=== PATIENT | female | born 1990 | race African-American/Black ===

== ENCOUNTER 2017-01-01 07:11 | Emergency (ER) | payer OTHER ==
[2017-01-01 07:28] VITALS: BP 135/70; PULSE 100; TEMP 98.1; BMI 32.9
--- NOTE | 2017-01-01 07:37 | PDOC ---
History of Present Illness - General Chief Complaint: Pain Stated Complaint: SWELLING OF WRIST History Source: Patient Exam Limitations: No Limitations - History of Present Illness Initial Comments: 01/01/17 07:33 My Chief Complaint:Right wrist pain History of Present Illness: Pt.is a 26 y/o female with no significant medical issues here today c/o pain that became 3 days ago wrist area with slight swelling, spreading to fingers today. Pt.denies any injury to hand, wrist or arm. Pt.has intermittent tingling of medial/dorsal wrist. Pain and tingling worse at night. Pt.reports symptoms worse at night. 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 Pt. has not taken anything for pain. Pt.is unsure of status. 01/01/17 08:05 01/01/17 08:23 Occurred: reports: other (3 days) Severity: reports: moderate Upper Extremity Pain Location: right: 2nd finger, 3rd finger, wrist Method of Injury: reports: unknown Modifying Factors: improves with: None Extremity Pain Location - Extremity Pain Location Extremity Pain Locations: right: 2nd finger, 3rd finger, other (wrist) Past History - Past Medical History Allergies/Adverse Reactions: Allergies Allergy/AdvReac Type Severity Reaction Status Date / Time No Known Allergies Allergy Verified 01/01/17 07:15 Home Medications: Ambulatory Orders Naproxen [Naprosyn -] 500 mg PO BID PRN #14 tablet MDD 2 01/01/17 Other medical history: denies - Suicide/Smoking/Psychosocial Hx Smoking Status: No Smoking History: Never smoked Number of Cigarettes Smoked Daily: 0 Information on smoking cessation initiated: No Hx Alcohol Use: No Drug/Substance Use Hx: No Substance Use Type: None Review of Systems - Review of Systems Able to Perform ROS?: Yes Constitutional: No: Symptoms Reported HEENTM: No: Symptoms Reported Respiratory: No: Symptoms reported Cardiac (ROS): No: Symptoms Reported ABD/GI: No: Symptoms Reported : No: Symptoms Reported Musculoskeletal: Yes: Joint Pain (right dorsal/volar wrist, rt.2nd 3rd digit), Joint Swelling (rt.dorsal wrist, rt.2nd, 3rd dorsal proximal digit) Integumentary: No: Symptoms Reported Neurological: Yes: Tingling (rt. dorsal/volar wrist intermittently worse at night ) *Physical Exam - Vital Signs Last Vital Signs Temp Pulse Resp BP Pulse Ox 98.1 F 100 H 18 135/70 100 01/01/17 07:14 01/01/17 07:14 01/01/17 07:14 01/01/17 07:14 01/01/17 07:14 - Physical Exam General Appearance: Yes: Appropriately Dressed Respiratory/Chest: positive: Lungs Clear, Normal Breath Sounds. negative: Chest Tender Cardiovascular: positive: Regular Rhythm, Regular Rate, S1, S2 Comments:: 01/01/17 07:58 radial pulse 4 + rt Extremity: positive: Normal Capillary Refill, Tender (rt. wrist,rt.2nd3rd digit dorsal,proximal digit ), Swelling (rt. dorsal wrist, 2nd & 3rd proximal dorsal digits). negative: Normal Inspection, Normal Range of Motion (decreased rom rt.wrist) Integumentary: positive: Normal Color Neurologic: positive: Alert, Normal Response, Respond to painful stimul (rt. wrist,forearm,all digits rt. hand, negative tinel, phalen), Responsive. negative: Motor Strength 5/5 (decreased motor rt.wrist,strength/motor 4/4 all rt.digits ), Numbness, Sensory Deficit (rt.forearm,wrist and all digits) Procedures - Consent Consent obtained: From Patient - Splinting Splint Location: Right: Wrist Pre-Proc Neuro Vasc Exam: normal Post-Proc Neuro Vasc Exam: normal Sling: No Complications: No Medical Decision Making - Medical Decision Making 01/01/17 08:23 Pt.is a 26 y/o female with no significant medical issues here today c/o pain that became 3 days ago wrist area with slight swelling, spreading to fingers today. Pt.denies any injury to hand, wrist or arm. Pt.has intermittent tingling of medial/dorsal wrist. Pain and tingling worse at night. Pt.reports symptoms worse at night. 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 Pt. has not taken anything for pain. Pt.is unsure of status. Differential diagnosis include: tenosynovitis, carpel tunnel syndrome, R/O tenosynovitis, carpel tunnel syndrome PLAN: urine hcg negative ibuprofen 400 mg po now xray rt.wrist/hand no gross abnormality noted per Dr. Parekh wrist immoblizer Follow up with ortho 01/01/17 09:14 01/01/17 18:11 *DC/Admit/Observation/Transfer Diagnosis at time of Disposition: Wrist pain, right - Discharge Dispostion Disposition: HOME Condition at time of disposition: Stable - Prescriptions Prescriptions: Naproxen [Naprosyn -] 500 mg PO BID PRN #14 tablet MDD 2 PRN Reason: Pain - Referrals Referrals: Kel Hoskins MD [Primary Care Provider] - Star Koenig MD [Staff Physician] - - Patient Instructions Additional Instructions: Wear wrist immoblizer during the day, off at night Follow up with orthopedist as soon as possible Avoid activities using right hand/wrist return to ER if symptoms worsen or new symptoms develop Patient voiced understanding of discharge instructions and all questions were answered - Post Discharge Activity Forms/Work/School Notes: Back to Work
[2017-01-01] MEDS ORDERED: IBUPROFEN 400 MG TABLET (FP) PO ONE ×2 (08:21→08:27)
== END 2017-01-01 09:32 | disposition home or self-care (01) ==
LOC: JER 07:11
PROC: 2W3CX1Z Immobilization of Right Lower Arm using Splint (ICD-10-PCS; principal; 2017-01-01)
DX: M25.531 Pain in right wrist (principal)
CPT/HCPCS: 73110-TC-RT; 73130-TC-RT; 84703; 99283-25

== ENCOUNTER 2019-03-25 01:42 | Emergency (ER) | payer OTHER ==
[2019-03-25 03:01] VITALS: BMI 36.0
--- NOTE | 2019-03-25 03:22 | PDOC ---
History of Present Illness - General Chief Complaint: Cold Symptoms Stated Complaint: COUGH,SOB Time Seen by Provider: 03/25/19 03:13 - History of Present Illness Initial Comments: 03/25/19 04:58 The patient is a 29 year old female with no significant PMH who presents for evaluation of cough and fever. The patient reports a 1 week history of fevers at home with associated nausea and vomiting. She states that the nausea and vomiting have resolved, but over the past few days she has developed a persistent non-productive cough and continued intermittent fevers prompting her presentation to the ED for further evaluation. She otherwise denies chills, sick contacts, recent travel, chest pain, abdominal pain, or changes with urination or bowel movements. Past History - Past Medical History Allergies/Adverse Reactions: Allergies Allergy/AdvReac Type Severity Reaction Status Date / Time Penicillins Allergy Severe Difficulty Verified 03/25/19 03:03 Breathing Home Medications: Ambulatory Orders Naproxen [Naprosyn -] 500 mg PO BID PRN #14 tablet MDD 2 01/01/17 Benzonatate [Tessalon Pearls -] 100 mg PO TID PRN #21 capsule 03/25/19 COPD: No - Psycho Social/Smoking Cessation Hx Smoking Status: No Smoking History: Never smoked Have you smoked in the past 12 months: No Number of Cigarettes Smoked Daily: 0 Information on smoking cessation initiated: No Hx Alcohol Use: No Drug/Substance Use Hx: No Substance Use Type: None Review of Systems - Review of Systems Comments:: 03/25/19 05:00 Constitutional: Fever. No chills, fatigue, malaise HEENT: No Rhinorrhea, nasal congestion, visual changes Cardiovascular: No chest pain, syncope, palpitations, lightheadedness Respiratory: Cough. No SOB, Hemoptysis, Gastrointestinal: Nausea, vomiting. No Abdominal pain, Constipation, Diarrhea, Melena Genitourinary: No Dysuria, Frequency, Urgency, Hesitancy, Hematuria, Flank pain Musculoskeletal: No Myalgia, arthralgia Skin: No rashes, itching, bruising, pallor Neurologic: No Headache, Dizziness, Numbness, Weakness, or Tingling Psychiatric: No Hallucinations. No SI or HI *Physical Exam - Vital Signs Last Vital Signs Temp Pulse Resp BP Pulse Ox 99.4 F 132 H 18 123/73 98 03/25/19 01:58 03/25/19 01:58 03/25/19 01:58 03/25/19 01:58 03/25/19 01:58 - Physical Exam 03/25/19 05:00 General Appearance: Nourished. No Apparent Distress HEENT: No Pharyngeal Erythema, Tonsillar Exudate, Tonsillar Erythema Neck: No Cervical Lymphadenopathy Respiratory/Chest: Lungs Clear, Normal Breath Sounds. No Crackles, Rales, Rhonchi, Wheezing Cardiovascular: Regular Rhythm, Regular Rate. No Murmur, Gallops, Rubs Gastrointestinal/Abdominal: Normal Bowel Sounds, Soft. No Guarding, Rebound, Tenderness Musculoskeletal: No CVA Tenderness Extremity: Normal Capillary Refill Integumentary: Normal Color, Dry, Warm Neurologic: Fully Oriented, Alert, Normal Mood/Affect, Normal Response, ED Treatment Course - LABORATORY CBC & Chemistry Diagram: 03/25/19 04:01 03/25/19 04:01 Medical Decision Making - Medical Decision Making 03/25/19 05:00 The patient is a 29 year old female with no significant PMH who presents for evaluation of cough and fever. Given the patient's history and physical exam, it is likely the patient's symptoms are due to a viral syndrome. However, we will obtain a cbc, cmp, chest plain film to evaluate further. We will treat with iv fluids and tylenol and continue to monitor and reassess while here in the ED. 03/25/19 05:01 CBc, cmp, were unremarkable. Chest plain film did not demonstrate any acute pathology as preliminarily read by ED physician pending official radiology review. The patient was reassessed and reports improvement in their symptoms. We are comfortable discharging the patient home in stable condition. Patient and family made aware of impression and plan, return precautions discussed including but not limited to worsening pain or symptoms, fevers, or signs of infection, chest pain, respiratory distress, inability to tolerate oral intake, dehydration, syncope, or neurologic changes. The patient is to follow up with PMD as recommended within 1 week, follow up information provided and the patient will call for an appointment. The patient is to take medications as instructed for duration of time and continue with supportive care, avoid triggers and precipitants. Patient is safe for outpatient follow-up. Discharge - Discharge Information Problems reviewed: Yes Clinical Impression/Diagnosis: Cough Condition: Stable Disposition: HOME - Additional Discharge Information Prescriptions: Benzonatate [Tessalon Pearls -] 100 mg PO TID PRN #21 capsule PRN Reason: Cough - Follow up/Referral Referrals: Kel Hoskins MD [Primary Care Provider] - - Patient Discharge Instructions Patient Printed Discharge Instructions: DI for Viral Upper Respiratory Infection -- Adult, DI for Cough -- Adult Additional Instructions: 1) Please follow-up with your primary care doctor in the next 2-3 days. Please call tomorrow to schedule a follow up appointment. If you cannot follow up with your doctor within 1 week please return to the Emergency Department for any urgent issues. 2) Your laboratory / imaging results were normal here in the ER. 3) If you have any worsening of symptoms or any other concerns, please return to the ER immediately. Return if worsening symptoms including fevers, headache, vomiting, visual or hearing disturbances, abdominal pain, chest pain, shortness of breath, syncope, dehydration, inability to take things by mouth/vomiting, altered mental status, or worsening concerning symptoms. 4) Please continue taking your home medications as directed. Side effects may include upset stomach, abdominal pain, vomiting, or diarrhea. Do not drink alcohol with your medications. - Post Discharge Activity Work/Back to School Note: Back to Work
[2019-03-25] MEDS ORDERED: ACETAMINOPHEN 1000 MG/100 ML VIAL (NON FORMULARY) IVPB ONE (03:23)
[2019-03-25] MEDS ORDERED: SODIUM CHLORIDE 1,000 ML IV STA (03:23)
[2019-03-25] MEDS ORDERED: ACETAMINOPHEN INJECTION 100 ML IVPB ONE (03:55)
--- NOTE | 2019-03-25 04:02 | PDOC ---
Attending Attestation - Resident Resident Name: Rajat Felix - ED Attending Attestation I have performed the following: I have examined & evaluated the patient, The case was reviewed & discussed with the resident, I agree w/resident's findings & plan, Exceptions are as noted
[2019-03-25 04:12] LABS: BASO % 0.2 % (0-2.0); EOS % 1.1 % (0-4.5); HEMATOCRIT 37.1 % (32.4-45.2); HEMOGLOBIN 12.2 GM/dL (10.7-15.3); MCH 26.4 pg (25.7-33.7); MCHC 32.8 g/dl (32.0-36.0); MEAN CELL VOLUME 80.4 fl (80-96); MEAN PLT VOLUME 8.5 fl (7.5-11.1); MONO % 10.9 % (3.8-10.2); NEUT % 61.8 % (42.8-82.8); PLATELET COUNT 277 K/MM3 (134-434); RBC 4.61 M/mm3 (3.60-5.2); WHITE BLOOD COUNT 8.5 K/mm3 (4.0-10.0)
[2019-03-25 04:41] LABS: ALBUMIN 3.1 g/dl (3.4-5.0); BILIRUBIN,TOTAL 0.3 mg/dL (0.2-1); BLOOD UREA NITROGEN 6.4 mg/dL (7-18); CREATININE 0.8 mg/dL (0.55-1.3); POTASSIUM 3.7 mmol/L (3.5-5.1); TOT PROT 6.9 g/dl (6.4-8.2)
[2019-03-25 05:12] VITALS: BP 120/68; PULSE 104; TEMP 98.7
== END 2019-03-25 05:12 | disposition home or self-care (01) ==
LOC: JER 01:42
PROC: 3E033NZ Introduction of Analgesics, Hypnotics, Sedatives into Peripheral Vein, Percutaneous Approach (ICD-10-PCS; principal; 2019-03-25)
DX: J06.9 Acute upper respiratory infection, unspecified (principal); B97.89 Other viral agents as the cause of diseases classified elsewhere; Z88.0 Allergy status to penicillin
CPT/HCPCS: 36415; 71046-TC-FY; 80053; 85025; 99282-25; J0131; J7030

== ENCOUNTER 2023-08-11 18:13 | Emergency (ER) | payer OTHER ==
[2023-08-11 18:18] VITALS: BP 137/77; PULSE 104; RESP 20; TEMP 98.8; BMI 31.7
[2023-08-11] MEDS: SODIUM CHLORIDE 0.9% 500 ML INFUS.BAG IV ONE (19:38)
[2023-08-11 19:42] LABS: BASO % 0.9 % (0-2.0); EOS % 1.6 % (0-4.5); HEMATOCRIT 37.4 % (32.4-45.2); HEMOGLOBIN 12.2 GM/dL (10.7-15.3); LYMPH % 28.1 % (8-40); MCH 26.7 pg (25.7-33.7); MCHC 32.6 g/dl (32.0-36.0); MEAN CELL VOLUME 81.8 fl (80-96); MEAN PLT VOLUME 8.2 fl (7.5-11.1); MONO % 7.1 % (3.8-10.2); NEUT % 62.3 % (42.8-82.8); PLATELET COUNT 314 10^3/uL (134-434); RBC 4.57 M/mm3 (3.60-5.2); RDW 13.7 % (11.6-15.6)
[2023-08-11 20:03] LABS: POTASSIUM 4.9 mmol/L (3.5-5.1)
[2023-08-11 20:06] LABS: ALBUMIN 3.6 g/dl (3.4-5.0); BLOOD UREA NITROGEN 9.5 mg/dL (7-18); CALCIUM 9.6 mg/dL (8.5-10.1)
[2023-08-11 20:09] LABS: CREATININE 0.8 mg/dL (0.55-1.3); URIC ACID 4.5 mg/dL (2.6-7.2)
[2023-08-11 20:11] LABS: TOT PROT 7.1 g/dl (6.4-8.2)
[2023-08-11 20:40] LABS: BILIRUBIN,TOTAL 0.3 mg/dL (0.2-1)
== END 2023-08-11 21:18 | disposition home or self-care (01) ==
LOC: JER 18:13
DX: M79.661 Pain in right lower leg (principal); M79.662 Pain in left lower leg; R20.2 Paresthesia of skin; R19.7 Diarrhea, unspecified; R51.9 Headache, unspecified; M54.2 Cervicalgia
CPT/HCPCS: 36415; 80053; 82550; 84550; 84703; 85025; 99283-25